=== PATIENT | female | born 1940 | race Caucasian/White ===

== ENCOUNTER → 2018-01-03 | Outpatient (CLI) | payer MEDICARE ==
[~2018-01-03] MED LIST: ATOR10TA24 PO; ESC10 PO; FAM20 PO; HRT; IBU200 PO; PAN40 PO; maxide
[2018-01-03 09:49] LABS: PLATELET COUNT, AUTOMATED 199 K/uL (150-450)
[2018-01-03 10:07] LABS: LDL CHOLESTEROL 169 mg/dl
== END ==
LOC: LAB 09:28
PROVIDERS: ATTEND Nurse Practitioner Psychiatric/Mental Health
DX: E03.9 Hypothyroidism, unspecified (principal); E78.5 Hyperlipidemia, unspecified; C85.90 Non-Hodgkin lymphoma, unspecified, unspecified site
CPT/HCPCS: 36415; 82040; 82247; 82310; 82374; 82435; 82465; 82565; 82947; 83718; 84075; 84132; 84155; 84295; 84439; 84443; 84450; 84460; 84478; 84480; 84520; 85025

== ENCOUNTER → 2018-06-24 | Outpatient (CLI) | payer MEDICARE | LOC: LAB 09:05 | PROVIDERS: ATTEND Nurse Practitioner Psychiatric/Mental Health | DX: E03.9 Hypothyroidism, unspecified (principal); R42 Dizziness and giddiness | CPT/HCPCS: 36415; 82040; 82247; 82310; 82374; 82435; 82565; 82947; 84075; 84132; 84155; 84295; 84439; 84443; 84450; 84460; 84480; 84520 ==